=== PATIENT | female | born 1945 | race Two or more races ===

== ENCOUNTER → 2020-06-20 | Outpatient (CLI) | payer OTHER | END | disposition home or self-care (01) | LOC: OFIC 805 11:00 | PROVIDERS: ATTEND Otolaryngology | DX: J32.8 Other chronic sinusitis (principal); R09.81 Nasal congestion; J30.89 Other allergic rhinitis ==

== ENCOUNTER → 2020-08-01 | Outpatient (CLI) | payer OTHER | END | disposition home or self-care (01) | LOC: OFIC 805 10:24 | PROVIDERS: ATTEND Otolaryngology | DX: R09.81 Nasal congestion (principal); J32.8 Other chronic sinusitis; J30.89 Other allergic rhinitis ==

== ENCOUNTER 2020-10-31 14:48 | Outpatient (CLI) | payer OTHER | END 2020-10-31 15:37 | disposition home or self-care (01) | LOC: OFIC 805 14:48 | PROVIDERS: ATTEND Otolaryngology | DX: R09.81 Nasal congestion (principal); J32.8 Other chronic sinusitis; J30.89 Other allergic rhinitis ==

== ENCOUNTER 2022-03-12 08:58 | Emergency (ER) | payer OTHER ==
[~2022-03-12] VITALS: Ht 165.1 cm; Wt 83.9 kg
[2022-03-12] MEDS ORDERED: CANDESARTAN-HC1 EACH PO (09:14)
[2022-03-12] MEDS ORDERED: PRAVASTATIN SOD40 MG PO (09:15)
[2022-03-12] MEDS ORDERED: TOPROL XL25 M1 PO (09:15)
== END 2022-03-12 20:25 | disposition home or self-care (01) ==
LOC: ER 08:58
DX: K52.9 Noninfective gastroenteritis and colitis, unspecified (principal); K57.32 Diverticulitis of large intestine without perforation or abscess without bleeding; N28.1 Cyst of kidney, acquired; R10.32 Left lower quadrant pain; Z20.822 Contact with and (suspected) exposure to COVID-19; I10 Essential (primary) hypertension

== ENCOUNTER 2023-04-12 10:16 | Emergency (ER) | payer OTHER ==
[~2023-04-12] VITALS: Ht 165.1 cm; Wt 78.5 kg
[~2023-04-12 10:16] MED LIST: CANDESARTAN-HC1 EACH PO; PRAVASTATIN SOD40 MG PO; TOPROL XL25 M1 PO
== END 2023-04-12 20:24 | disposition home or self-care (01) ==
LOC: ER 10:16
PROVIDERS: Emergency Medicine
DX: R10.9 Unspecified abdominal pain (principal); K57.32 Diverticulitis of large intestine without perforation or abscess without bleeding
CPT/HCPCS: 36415; 74177; 96365; 99284; Q9965

== ENCOUNTER 2023-06-02 11:47 | Outpatient (CLI) | payer OTHER ==
[2023-06-02 12:19] LABS: HEMATOCRIT 34.6 % (36.0-45.00); MEAN CELL VOLUME 88.3 fL (80.00-100.00); MEAN CORPUSCULAR HEMOGLOBIN 30.6 pg (27.00-32.0); MEAN CORPUSCULAR HGB CONC 34.7 g/dl (32.0-36.0); PLATELET COUNT 193 K/uL (150-450); RED BLOOD COUNT 3.91 M/uL (4.00-6.00); RED CELL DISTRIBUTION WIDTH 14.1 % (11.5-14.5)
[2023-06-02 12:38] LABS: INR 1.01; PARTIAL THROMBOPLASTIN TIME 30.2 SECONDS (22.0-34.0); PROTHROMBIN TIME 10.6 SECONDS (9.0-11.5)
== END 2023-06-02 11:52 | disposition home or self-care (01) ==
LOC: LAB 11:47
DX: D68.8 Other specified coagulation defects (principal); R10.32 Left lower quadrant pain; R10.30 Lower abdominal pain, unspecified

== ENCOUNTER 2024-02-19 13:20 | Emergency (ER) | payer OTHER ==
[~2024-02-19] VITALS: Ht 162.6 cm; Wt 76.2 kg
[2024-02-19] MEDS ORDERED: FAMOTIDINE/PF 20 MG in 0.9 % SODIUM CHLORIDE 8 ML IV PUSH STA (15:12)
[2024-02-19] MEDS ORDERED: KETOROLAC TROMETHAMINE 30 MG VIAL IV ONE (15:15)
[2024-02-19] MEDS ORDERED: 0.9 % SODIUM CHLORIDE 1,000 ML IV SCH (15:15)
[2024-02-19] MEDS ORDERED: PIPERACILLIN/TAZOBACTAM SODIUM 3.375 GM VIAL IV ONE ×2 (15:15→15:53)
[2024-02-19] MEDS ORDERED: FAMOTIDINE/PF 20 MG/2 ML VIAL ONE (15:53)
[2024-02-19] MEDS ORDERED: KETOROLAC TROMETHAMINE 30 MG VIAL ONE (15:53)
[2024-02-19 16:57] LABS: HEMOGLOBIN 12.1 g/dL (12.0-15.00); MEAN CELL VOLUME 90.3 fL (80.00-100.00); MEAN CORPUSCULAR HEMOGLOBIN 31.2 pg (27.00-32.0); MEAN CORPUSCULAR HGB CONC 34.6 g/dl (32.0-36.0); PLATELET COUNT 240 K/uL (150-450); RED BLOOD COUNT 3.88 M/uL (4.00-6.00); RED CELL DISTRIBUTION WIDTH 14.3 % (11.5-14.5)
[2024-02-19 17:12] LABS: ALBUMIN 3.3 gm/dL (3.4-5.0); BILIRUBIN TOTAL 0.54 mg/dL (0.3-1.2); CALCIUM 9.5 mg/dL (8.5-10.1); CREATININE SERUM 0.71 mg/dL (0.55-1.02); GFR 79.61; GLOBULINA 3.4 G/DL (2.4-3.5); POTASSIUM 3.88 mEq/L (3.5-5.1); TOTAL PROTEIN 6.7 gm/dL (6.4-8.2)
[2024-02-19] MEDS ORDERED: METRONIDAZOLE500 MG PO (19:56)
[2024-02-19] MEDS ORDERED: CIPRO500 MG PO (19:56)
== END 2024-02-19 20:20 | disposition home or self-care (01) ==
LOC: ER 13:20
PROVIDERS: General Practice
DX: K57.32 Diverticulitis of large intestine without perforation or abscess without bleeding (principal); R10.32 Left lower quadrant pain; I10 Essential (primary) hypertension
CPT/HCPCS: 36415; 74176; 96365; 96366; 99284; J1885; J2543; J3490; J7030